=== PATIENT | female | born 1965 | race Native Hawaiian/Other Pacific Islander ===

== ENCOUNTER 2016-07-23 08:24 | Outpatient (CLI) | payer BC | END 2016-07-23 19:06 | disposition home or self-care (01) | LOC: MAMMO 08:24 | DX: Z12.31 Encounter for screening mammogram for malignant neoplasm of breast (principal) | CPT/HCPCS: G0202-TC ==

== ENCOUNTER 2018-08-22 15:24 | Outpatient (CLI) | payer BC | END 2018-08-22 23:07 | disposition home or self-care (01) | LOC: MAMMO 15:24 | DX: Z12.31 Encounter for screening mammogram for malignant neoplasm of breast (principal) ==

== ENCOUNTER 2021-02-05 15:01 | Outpatient (CLI) | payer BC | END 2021-02-05 20:40 | disposition home or self-care (01) | LOC: MAMMO 15:01 | PROVIDERS: ATTEND Obstetrics & Gynecology | DX: Z12.31 Encounter for screening mammogram for malignant neoplasm of breast (principal) ==

== ENCOUNTER 2022-04-16 08:40 | Outpatient (CLI) | payer BC | END 2022-04-16 19:00 | disposition home or self-care (01) | LOC: MAMMO 08:40 | PROVIDERS: ATTEND Nurse Practitioner Family | DX: Z12.31 Encounter for screening mammogram for malignant neoplasm of breast (principal) ==